=== PATIENT | female | born 1985 | race Caucasian/White ===

== ENCOUNTER 2020-07-13 21:23 | Emergency (ER) | payer BC, OTHER ==
[2020-07-13 21:47] VITALS: BP 140/101; PULSE 86
[2020-07-13] MEDS ORDERED: Lidocaine 1% with EPINEPHrine 1:100,000 50 ML MDV SUBCUT STA (21:47)
[2020-07-13] MEDS ORDERED: Bacitracin Oint 1 GM U/D Packet TOP ONE (21:48)
--- NOTE | 2020-07-13 22:10 | EDM.PDOC ---
ED HPI GENERAL MEDICAL PROBLEM - General Chief Complaint: Laceration Stated Complaint: KICKED IN THE FACE Time Seen by Provider: 07/13/20 21:40 Source of Information: Reports: Patient, Old Records, RN History Limitations: Reports: No Limitations - History of Present Illness INITIAL COMMENTS - FREE TEXT/NARRATIVE: 34 yo female was kicked in the R rastafarian by a cow shortly before arrival. Incurred a laceration. Denies LOC, BENDER, neck pain, jaw pain or nausea. Last tetanus was about 5 yrs ago. Walked into the ER without issue. Onset: Today, Sudden Onset Date: 07/13/20 Duration: Minutes: Location: Reports: Face (R rastafarian area). 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) (none) right side of face Pain Score (Numeric/FACES): 6 - Related Data Allergies Allergy/AdvReac Type Severity Reaction Status Date / Time No Known Allergies Allergy Verified 07/13/20 21:35 Home Meds: Home Meds Multivitamin [Multi-Vitamin Daily] 1 each PO DAILY 12/05/15 [History] Past Medical History HEENT History: Reports: Impaired Vision, Other (See Below) Other HEENT History: wears glasses 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: Reports: Musculoskeletal History: Reports: Fracture Endocrine/Metabolic History: Reports: Obesity/BMI 30+ - Infectious Disease History Infectious Disease History: Reports: Chicken Pox - Past Surgical History HEENT Surgical History: Reports: None GI Surgical History: Reports: Bariatric Procedure Other GI Surgeries/Procedures: gastric bypass rny 2016 Female Surgical History: Reports: Tubal Ligation Endocrine Surgical History: Reports: None Musculoskeletal Surgical History: Reports: Other (See Below) Other Musculoskeletal Surgeries/Procedures:: right ankle tib/fib-plate/screws Dermatological Surgical History: Reports: None Social & Family History - Family History Cardiac: Reports: High Cholesterol, Hypertension Endocrine/Metabolic: Reports: Diabetes, type II - Tobacco Use Tobacco Use Status *Q: Never Tobacco User - Caffeine Use Caffeine Use: Reports: Coffee - Recreational Drug Use Recreational Drug Use: No ED ROS GENERAL - Review of Systems Review Of Systems: See Below Constitutional: Reports: No Symptoms HEENT: Reports: No Symptoms GI/Abdominal: Denies: Nausea Musculoskeletal: Reports: No Symptoms Skin: Reports: Wound (laceration of R rastafarian) Neurological: Reports: No Symptoms ED EXAM, SKIN/RASH Exam: See Below Exam Limited By: No Limitations General Appearance: Alert, WD/WN, No Apparent Distress Eye Exam: Bilateral Eye: Normal Inspection, PERRL Ears: Normal External Exam, Normal Canal, Hearing Grossly Normal Nose: Normal Inspection, No Blood Throat/Mouth: Normal Inspection, Normal Lips, Normal Oropharynx, Normal Voice, No Airway Compromise Head: Normocephalic. No: Facial Swelling, Facial Tenderness Neck: Normal Inspection, Supple, Non-Tender, Full Range of Motion. No: Limited Range of Motion Respiratory/Chest: No Respiratory Distress, Normal Breath Sounds Extremities: Normal Inspection Neurological: Alert, Oriented, CN II-XII Intact, Normal Cognition, No Motor/Sensory Deficits Psychiatric: Normal Affect, Normal Mood Skin: Warm, Dry, Normal Color, No Rash, Wound/Incision Location, Skin: Face (R rastafarian laceration) Characteristics: Linear Associated features: No: Swelling, Induration, Lymphangitis ED SKIN PROCEDURES - Laceration/Wound Repair Right Forehead Appearance: Subcutaneous, Linear, Mildly Contaminated Distal NVT: Neuro & Vascular Intact Anesthetic Type: Local Local Anesthesia - Lidocaine (Xylocaine): 1% with EPI Local Anesthetic Volume: 4cc Skin Prep: Saline Saline Irrigation (cc's): 35 Exploration/Debridement/Repair: Wound Explored, Foreign Material Removed Closed with: Sutures Lac/Wound length In cm: 3.0 Suture Size: 6-0 Suture Type: Prolene, Interrupted, Simple, Mattress Drain Placement: No Sterile Dressing Applied: Nurse Tetanus Status Addressed: Yes Complications: No Course - Vital Signs Last Recorded V/S: Last Vital Signs Temp 35.7 C L 07/13/20 21:47 Pulse 86 07/13/20 21:47 Resp 15 07/13/20 21:47 BP 140/101 H 07/13/20 21:47 Pulse Ox 100 07/13/20 21:47 - Orders/Labs/Meds Orders: Active Orders 24 hr Category Date Time Status Bacitracin [Bacitracin Oint 1 GM] Med 07/13/20 21:48 Once 1 dose TOP ONETIME ONE Lidocaine 1% w/EPINEPHrine [Xylocaine 1% with Med 07/13/20 21:47 Stat EPINEPHrine 1:100,000] 5 ml SUBCUT NOW STA Departure - Departure Time of Disposition: 22:15 Disposition: Home, Self-Care 01 Condition: Good Clinical Impression: Facial laceration Qualifiers: Encounter type: initial encounter Qualified Code(s): S01.81XA - Laceration without foreign body of other part of head, initial encounter - Discharge Information *PRESCRIPTION DRUG MONITORING PROGRAM REVIEWED*: No *COPY OF PRESCRIPTION DRUG MONITORING REPORT IN PATIENT SHAHEEN: No Instructions: Laceration Care, Adult, [id number] Referrals: PCP,None [Primary Care Provider] - Additional Instructions: Clean wound twice daily with 1/2 water and 1/2 peroxide. Dry. Apply antibiotic ointment and a new dressing(at night). Take acetaminophen or ibuprofen for pain relief. Recheck for signs of infection. Stitches out in a week with your provider or here. Sepsis Event Note (ED) - Evaluation Sepsis Screening Result: No Definite Risk - Focused Exam Vital Signs: Vital Signs Temp Pulse Resp BP Pulse Ox 07/13/20 21:47 35.7 C L 86 15 140/101 H 100 07/13/20 21:46 35.7 C L 86 15 140/101 H 100 - My Orders Last 24 Hours: My Active Orders 07/13/20 21:47 Lidocaine 1% w/EPINEPHrine [Xylocaine 1% with EPINEPHrine 1:100,000] 5 ml SUBCUT NOW STA 07/13/20 21:48 Bacitracin [Bacitracin Oint 1 GM] 1 dose TOP ONETIME ONE - Assessment/Plan Last 24 Hours: My Active Orders 07/13/20 21:47 Lidocaine 1% w/EPINEPHrine [Xylocaine 1% with EPINEPHrine 1:100,000] 5 ml SUBCUT NOW STA 07/13/20 21:48 Bacitracin [Bacitracin Oint 1 GM] 1 dose TOP ONETIME ONE
== END 2020-07-13 22:22 | disposition home or self-care (01) ==
LOC: JP.ED 21:23
DX: S01.81XA Laceration without foreign body of other part of head, initial encounter (principal); E66.9 Obesity, unspecified; Z68.36 Body mass index [BMI] 36.0-36.9, adult; W55.22XA Struck by cow, initial encounter
CPT/HCPCS: 12013; 12052; 99282; 99282-25